=== PATIENT | male | born 1955 | race Caucasian/White ===

== ENCOUNTER 2016-11-22 22:32 | Emergency (ER) | payer OTHER ==
[~2016-11-22] VITALS: Ht 180.3 cm; Wt 75.8 kg
[2016-11-23 00:17] LABS: MCHC 34.2 G/DL (30.0-36.0); MCV 96.6 FL (86-99); MEAN PLAT.VOLUME 9.3 uM^3 (9.0-12.4); PLATELET COUNT 228 K/uL (156-360); RBC DIS.WIDTH-CV 13.3 % (11.8-14.6); RBC DIS.WIDTH-SD 45.8 % (39-53); RED BLOOD COUNT 4.45 M/uL (4.00-5.50); WHITE BLOOD COUNT 10.5 K/uL (4.1-10.2)
[2016-11-23] MEDS ORDERED: ZOLOFT100 MG PO (00:32)
[2016-11-23] MEDS ORDERED: ATORVASTATIN CA40 MG PO (00:34)
[2016-11-23] MEDS ORDERED: CLORAZEPATE DIP15 MG PO (00:58)
[2016-11-23 01:18] LABS: CHLORIDE 101 mEq/L (99-109); POTASSIUM 4.1 mEq/L (3.7-5.4); SODIUM 146 mEq/L (136-147)
[2016-11-23 01:20] LABS: GLUCOSE 96 mg/dL (70-99)
[2016-11-23 01:21] LABS: ANION GAP 15 MEQ/L (2-14)
[2016-11-23 01:23] LABS: SERUM ETHYL ALCOHOL 228 mg/dL
[2016-11-23 01:24] LABS: GFR ESTIMATE (CALCULATED) > 59 mL/min/
[2016-11-23 01:25] LABS: UREA NITROGEN (BUN) 7 mg/dL (9-23)
[2016-11-23 03:10] VITALS: BP 122/66
== END 2016-11-23 03:13 | disposition home or self-care (01) ==
LOC: TRA 22:32
PROVIDERS: Emergency Medicine
DX: S01.81XA Laceration without foreign body of other part of head, initial encounter (principal); S01.01XA Laceration without foreign body of scalp, initial encounter; V49.88XA Car occupant (driver) (passenger) injured in other specified transport accidents, initial encounter; F17.200 Nicotine dependence, unspecified, uncomplicated
CPT/HCPCS: 70450; 72125; 74176; 80048; 85027; 99281; 99285; G0480; J7030